=== PATIENT | male | born 1950 | race Caucasian/White ===

== ENCOUNTER → 2021-04-30 | Outpatient (CLI) | payer MEDICARE, BC ==
--- NOTE | 2021-04-30 15:29 | REP ---
INDICATION: Assess stenosis TECHNIQUE: Carotid ultrasonography was performed bilaterally FINDINGS: Right: CCA systolic: 70.8 centimeters/second CCA diastolic: 16.2 centimeters/second ICA systolic: 62.3 centimeters/second ICA diastolic: 16.2 centimeters/second ICA CCA ratio: 0.88 Left: CCA systolic: 73.8 centimeters/second CCA diastolic: 16.2 centimeters/second ICA systolic: 66.0 centimeters/second ICA diastolic: 23.4 centimeters/second ICA CCA ratio: 0.89 Vertebral artery: Right: Antegrade flow left: Antegrade flow A mild to moderate amount of echogenic material is seen along the carotid arterial martinez some of which casts and acoustic shadow. IMPRESSION: According to the SRU criteria there is less than 50% stenosis of the internal carotid artery bilaterally. This is secondary to a mild to moderate amount of calcified and noncalcified atheromatous plaque formation. <Electronically signed by Omega Beth > 04/30/21 [id number]
== END ==
LOC: M RAD 13:26
PROVIDERS: ATTEND Physician Assistant Medical
DX: I65.21 Occlusion and stenosis of right carotid artery (principal)

== ENCOUNTER → 2022-05-25 | Outpatient (CLI) | payer MEDICARE, BC | LOC: M RAD 13:55 | PROVIDERS: ATTEND Physician Assistant Medical | DX: I65.21 Occlusion and stenosis of right carotid artery (principal) ==

== ENCOUNTER → 2023-05-27 | Outpatient (CLI) | payer MEDICARE, BC | LOC: M RAD 09:15 | PROVIDERS: ATTEND Physician Assistant Medical | DX: I65.23 Occlusion and stenosis of bilateral carotid arteries (principal) ==